=== PATIENT | female | born 1990 | race Caucasian/White ===

== ENCOUNTER → 2019-01-14 10:09 | Outpatient (CLI) | payer OTHER, SELFPAY ==
[2014-08-30 15:38] VITALS: BMI 30.2
[2019-01-14 12:45] LABS: Thyroid Stim Hormone (TSH) 1.24 uIU/mL (0.358-3.74)
== END ==
PROVIDERS: Family Provider Family Medicine; PCP Family Medicine; Visit Provider Family Medicine
DX: F41.0 Panic disorder [episodic paroxysmal anxiety] (principal)
CPT/HCPCS: 36415; 84443

== ENCOUNTER 2021-09-08 17:01 | Outpatient (CLI) | payer OTHER, SELFPAY ==
[2021-09-14 16:55] LABS: HPV APTIMA, High Risk Positive (Negative); HPV Reflexed? YES, CHARGE PATIENT
== END 2021-09-08 23:59 | disposition short-term general hospital (02) ==
LOC: LABSPEC 17:02
PROVIDERS: PCP Family Medicine; Visit Provider Obstetrics & Gynecology
DX: Z12.4 Encounter for screening for malignant neoplasm of cervix (principal)
CPT/HCPCS: 87624; 88175; G0145

== ENCOUNTER 2021-10-13 15:30 | Outpatient (CLI) | payer OTHER, SELFPAY ==
[2021-10-15 22:06] LABS: Chlamydia By Nucleic Acid AMP Negative (Negative)
[2021-10-15 22:43] LABS: Gonococcus By Nucleic Acid AMP Negative (Negative)
== END 2021-10-13 23:59 | disposition home or self-care (01) ==
LOC: LABSPEC 15:33
PROVIDERS: PCP Family Medicine; Visit Provider Obstetrics & Gynecology
DX: Z11.3 Encounter for screening for infections with a predominantly sexual mode of transmission (principal)
CPT/HCPCS: 87491; 87591

== ENCOUNTER 2021-10-27 11:28 | Outpatient (CLI) | payer OTHER, SELFPAY ==
--- NOTE | 2021-10-27 | IMM_PTH ---
PATIENT: LAKESHA HANNON LOC: [facility] U#:[id number] AGE/SX: 31/F ROOM: RE10/27/[address]: Dr. Bishop Mullins MD : 1990 BED: DIS: 10/27/2021 SPEC #: [id number] RECD: 10/28/21 13:29 STATUS: SCAR REAmos #: [id number] MADALYN: 10/27/21 00:[address]: Bishop Mullins DEPT: IMMUNOHISTOCHEMISTRY RECD BY: Celia Begum ENTERED: 10/28/21 13:29 SP TYPE: IMMUNO OTHR DR: Dr. Juan Ramos MD Tissues: A - Uterine cervix, NOS B - Endocervical Procedures: p16 (initial) KI-67 (add) PHYSICIAN & INSTITUTION [place] [id number] SPECIMEN INFORMATION: Tissue Source: A ? Cervical, four quadrant biopsy, B ? Endocervical curettage Clinical Info: HGSIL Specimen Number: [id number] A & B CPT code: 75498 x2, 79466 x2 METHODOLOGY: Deparaffinized sections of prefer/formalin-fixed tissue or PAP/DQ stained slides are incubated with monoclonal/polyclonal antibodies/oligonucleotide probes. Localization is made via biotin free immunoperoxidase method. Appropriate controls are performed and reacted as expected. Results on target cell population are indicated in the following table: RESULTS: ANTIBODY / CLONE RESULT Block A P16 (E6H4) positive, block-like Ki-67 (30-9) positive, moderate to high Block B P16 (E6H4) positive, block-like Ki-67 (30-9) positive, moderate These tests were developed and their performance characteristics determined by [facility]. They may not have been cleared or approved by the U.S. Food and Drug Administration. The FDA has determined that such clearance or approval is not necessary. The above immunohistochemical/dualISH markers are ordered and reviewed by the Pathologist. INTERPRETATION: A. Cervical, four quadrant biopsy: Moderate to severe squamous dysplasia, BERNIE II-III (HSIL). B. Endocervical curettage: Detached squamous epithelium with moderate to severe squamous dysplasia. AM:deni 10/29/2021
--- NOTE | 2021-10-27 10:45 | CER_PTH ---
PATIENT: LAKESHA HANNON [facility]: [facility] U#:[id number] AGE/SX: 31/F ROOM: RE10/27/[address]: Dr. Bishop Mullins MD : 1990 BED: DIS: 10/27/2021 SPEC #: [id number] RECD: 10/27/21 11:45 STATUS: SCAR REAmos #: [id number] MADALYN: 10/27/21 10:[address]: Bishop Mullins DEPT: SURGICAL PATHOLOGY RECD BY: Rema Herrera ENTERED: 10/27/21 12:30 SP TYPE: CERV OTHR DR: Dr. Juan Ramos MD Tissues: A - Uterine cervix, NOS B - Endocervical Procedures: Surgery Specimen Level IV HEADER OPERATION: Colposcopy PRE-OP DIAGNOSIS: HGSIL R87.613 TISSUE SUBMITTED: A ? Cervical biopsy (four-quadrant), B ? Endocervical curettage MICROSCOPIC DIAGNOSIS A. Cervix, biopsy: Mild, moderate and focal severe squamous dysplasia, BERNIE I-III (HSIL). Moderate dysplasia focally involves endocervical glands. See comment. B. Endocervix, curettings: Scant strips of benign superficial endocervix. Detached fragments of squamous mucosa with moderate/sever dysplasia and HPV change. See comment. AM:deni 10/28/2021 COMMENT A & B. Results from immunohistochemistry ([id number]) for surrogate HPV marker (p16) will be reported separately. MICROSCOPIC DESCRIPTION Slides are reviewed. GROSS DESCRIPTION A - Received in fixative is one container labeled with the patient's name and designated four quad cervical biopsy. The specimen consists of multiple irregular fragments of light bello soft tissue that in aggregate measure 1.2 x 0.5 x 0.1 cm. The specimen is totally submitted in one cassette. B - Received in fixative is one container labeled with the patient's name and designated endocervical curettage. The specimen consists of light bello mucoid material aggregating to 1.6 x 1 x 0.1 cm. The specimen is totally submitted in one cassette. / AM:deni 10/27/2021 TC:0 CPT: 19523 x2
== END 2021-10-27 23:59 | disposition home or self-care (01) ==
LOC: LABSPEC 11:30
PROVIDERS: PCP Family Medicine; Visit Provider Obstetrics & Gynecology
DX: R87.613 High grade squamous intraepithelial lesion on cytologic smear of cervix (HGSIL) (principal)
CPT/HCPCS: 88305; 88341; 88342

== ENCOUNTER 2021-12-20 05:54 | Day surgery (SDC) | payer OTHER, SELFPAY ==
[2021-12-08 12:47] LABS: Hematocrit 40.8 % (37-47); Hemoglobin 13.8 g/dL (12.0-15.0); Mean Corp Hgb Conc 33.8 g/dL (32-36); Mean Corpuscular Volume 91.7 fL (81-99); Mean Platelet Vol. 10.5 fl (6.2-12.0); Platelet Count 312 K/mm3 (150-450); RBC Distribution Width CV 11.9 % (11.6-14.6); RBC Distribution Width SD 39.6 fl (35.1-43.9); Red Blood Count 4.45 M/mm3 (4.2-5.4); White Blood Count 6.1 K/mm3 (4.4-11.0)
[2021-12-08 12:49] LABS: Internal QC Validated? YES +Cl - CLEAR BKGD; Pregnancy, Serum, hCG Quali. NEGATIVE Negative
[2021-12-08 12:56] LABS: International Normalized Ratio 0.9
[2021-12-08 12:57] LABS: Partial Thromboplast Time 25.9 Seconds (24.1-36.2)
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
--- NOTE | 2021-12-20 | IMM_PTH ---
PATIENT: LAKESHA HANNON LOC: [facility] U#:[id number] AGE/SX: 31/F ROOM: RE12/20/[address]: Dr. Bishop Mullins MD : 1990 BED: DIS: 12/20/2021 SPEC #: [id number] RECD: 12/21/21 12:27 STATUS: SCAR REAmos #: [id number] MADALYN: 12/20/21 00:[address]: Bishop Mullins DEPT: IMMUNOHISTOCHEMISTRY RECD BY: Celia Begum ENTERED: 12/21/21 12:30 SP TYPE: IMMUNO OTHR DR: Dr. Juan Ramos MD Tissues: A - UTERINE CERVIX LEEP B - UTERINE CERVIX LEEP C - Endocervical Procedures: p16 (initial) KI-67 (add) PHYSICIAN & INSTITUTION [place] [phone] SPECIMEN INFORMATION: Tissue Source: A ? Ectocervix, B ? Endocervix, C ? ECC after LEEP Clinical Info: HGSIL Specimen Number: [id number] A3, B & C CPT code: 66083 x3, 66943 x3 METHODOLOGY: Deparaffinized sections of prefer/formalin-fixed tissue or PAP/DQ stained slides are incubated with monoclonal/polyclonal antibodies/oligonucleotide probes. Localization is made via biotin free immunoperoxidase method. Appropriate controls are performed and reacted as expected. Results on target cell population are indicated in the following table: RESULTS: ANTIBODY / CLONE RESULT Block A3 P16 (E6H4) positive, block staining Ki-67 (30-9) positive, high Block B P16 (E6H4) positive, block staining Ki-67 (30-9) positive, high Block C P16 (E6H4) positive, block staining Ki-67 (30-9) positive, high These tests were developed and their performance characteristics determined by [facility]. They may not have been cleared or approved by the U.S. Food and Drug Administration. The FDA has determined that such clearance or approval is not necessary. The above immunohistochemical/dualISH markers are ordered and reviewed by the Pathologist. INTERPRETATION: A. Ectocervix, LEEP conization: Severe squamous dysplasia. B. Endocervix, LEEP conization: Severe squamous dysplasia. C. ECC after LEEP: Severe squamous dysplasia. SJ:deni 12/22/2021
[2021-12-20] MEDS: Lactated Ringers 1,000 ML 100 ML IV (06:15)
[2021-12-20 06:29] LABS: Internal QC Validated? YES +Cl - CLEAR BKGD; Pregnancy, Urine Negative Negative
[2021-12-20 06:30] VITALS: BP 131/79; PULSE 67; RESP 16; TEMP 36.6; O2SAT 100; BMI 36.2
--- NOTE | 2021-12-20 07:30 | CONE_PTH ---
PATIENT: LAKESHA HANNON [place] [facility] [place][id number] AGE/SX: 31/F ROOM: RE12/20/[address]: Dr. Bishop Mullins MD : 1990 BED: DIS: 12/20/2021 SPEC #: [id number] RECD: 12/20/21 10:47 STATUS: SCAR REAmos #: [id number] MADALYN: 12/20/21 07:[address]: Bishop Mullins DEPT: SURGICAL PATHOLOGY RECD BY: Rema Herrera ENTERED: 12/20/21 11:46 SP TYPE: Leep Cone ALEXA DR: Dr. Juan Ramos MD Tissues: A - UTERINE CERVIX LEEP B - UTERINE CERVIX LEEP C - Endocervical Procedures: Surgery Specimen Level IV Surgery Specimen Level V HEADER OPERATION: LEEP cone PRE-OP DIAGNOSIS: HGSIL TISSUE SUBMITTED: A ? Ectocervix, B ? Endocervix, C ? ECC after LEEP MICROSCOPIC DIAGNOSIS A. Ectocervix, LEEP conization: Extensive severe squamous dysplasia with HPV changes (HGSIL, BERNIE III). Dysplastic changes also involve endocervical glands. Chronic inflammation. See comment. B. Endocervix, LEEP conization: Moderate to severe squamous dysplasia. Dysplastic changes are very close to resection margin. See comment. C. ECC after LEEP: Detached fragments of squamous epithelium with severe squamous dysplasia. See comment. SJ:deni 12/21/2021 COMMENT A. Immunohistochemistry ([id number]) for surrogate HPV marker (p16) supports the above diagnosis. All three pieces show severe squamous dysplastic changes. Resection margin cannot be assessed as the specimen was received in multiple pieces. B. Immunohistochemistry ([id number]) for surrogate HPV marker (p16) supports the above diagnosis. C. Immunohistochemistry ([id number]) for surrogate HPV marker (p16) supports the above diagnosis. Please make reference to previous specimen ([id number]) cervix, biopsy with diagnosis of ?mild, moderate and focal severe squamous dysplasia? and endocervix, curettings with diagnosis of ?detached fragments of squamous mucosa with moderate/severe dysplasia and HPV changes.? MICROSCOPIC DESCRIPTION Slides are reviewed. GROSS DESCRIPTION A - Received in fixative is one container labeled with the patient's name and designated ectocervix. The specimen consists of three variable size pieces of bello, indurated tissue measuring 1.5 x 1 x 0.2 cm, 1.5 x 0.5 x 0.2 cm and 1 x 0.5 x 0.1 cm. No mucosal lesion is identified. Nonmucosal surface is inked black. The entire specimen is submitted in three cassettes. Each cassette contains one piece. B - Received in fixative is one container labeled with the patient's name and designated endocervix. The specimen consists of a bello, indurated piece of tissue measuring 1.5 x 0.6 x 0.3 cm. No mucosal lesion is identified. Nonmucosal surface is inked black. The specimen is serially sectioned and submitted entirely in one cassette. C - Received in fixative is one container labeled with the patient's name and designated ECC after LEEP. The specimen consists of multiple fragments of hemorrhagic mucoid tissue that in aggregate measure 0.5 x 0.2 x 0.1 cm. The specimen is totally submitted in one cassette. / CARRILLO:deni 12/20/2021 TC:5 CPT: 39724 x2, 81221
[2021-12-20] MEDS: Iodine/Potassium Iodide 14ML Bottle 1 DRP TOPICAL (07:50)
[2021-12-20] MEDS: FERRIC SUBSULFATE 8 GM SOLN (08:01)
--- NOTE | 2021-12-20 08:08 | PCM.OPRPT ---
Report of Operation Date of Procedure: 12/20/21 Pre-Operative Diagnosis: Severe Cervical Dysplasia Post-Operative Diagnosis: Severe Cervical Dysplasia Surgery/Procedure Performed:: LEEP of Cervix Description of Surgical Findings:: Normal-appearing cervix with IUD string present at cervical opening. Surgeon: Bishop Mullins Type of Anesthesia: General (LMA) Anesthesiologist: Nehemiah Ibrahim Specimen's removed: Endo cervix, ectocervix, ECC after LEEP Estimated Blood Loss (mL): Minimal Fluids Replaced: Crystalloid Description of Procedure: Surgeon: Bishop Mullins MD, FACOG Indication: 31 year patient who was recently noted to have severe cervical dysplasia at time of cervical biopsy. Given this, the patient desires that we proceed with the above surgery. She has been counseled regarding the risk, indications, and alternatives of this procedure and desire that we proceed. All questions answered. Procedure: Patient taken to the operating room where she was given IV sedation and placed in the dorsal lithotomy position and prepped and draped in the usual sterile fashion. Cervix was visualized and painted with Lugol's solution. The ectocervix was then removed to a depth of 5 mm on a setting of 50 W cutting and endocervix removed to a depth of 7 mm on a setting of 50 W cutting. Endocervical curettings were obtained. Base of the cone was then cauterized a setting of 50 W coagulation and Monsel's was painted across the LEEP base. Pt tolerated the procedure well and was taken to the recovery room in satisfactory condition. Sponge, instruments and needle counts were all correct. There were no apparent complications of the surgery. To Pathology: Ectocervix, endocervix, ECC after LEEP EBL Minimal. Grafts/Implants Used: None Complications None Admit VTE Documentation VTE Present on Admission: Yes VTE Mechan Device Prophylaxis: SCD's
--- NOTE | 2021-12-20 08:12 | PCM.DC ---
Discharge Instructions Diet Discharge Diet: No restrictions Activity Discharge Activity: Return to Normal Activity, May Shower and May Take a Tub Bath May resume sexual activity in: 4 weeks Additional Activity Instructions:: Nothing in vagina for 3 weeks. Okay the use ibuprofen or Tylenol per package directions for any cramping you may have over the next few days. Dressing / Incision Call your doctor if you observe: Fever of 101 or Higher, Inability to urinate and Inability to have a bowel movement Follow Up Care Please Follow Up With: Bishop Mullins MD When: 3-4 weeks Test Results: Test results from this visit will be discussed in further detail at your follow-up appointment, if applicable. Discharge Plan Admission Primary Reason for Your Visit: LEEP of Cervix Attending Provider: Bishop Mullins Primary Care Provider: Juan Ramos Discharge Orders/Prescriptions Prescriptions: No Action paroxetine HCl [Paxil] 20 mg Tablet 20 mg PO DAILY RF: 0 Referrals / Follow Up: Juan Ramos MD [Primary Care Provider] - Disposition Disposition (needs filled in before D/C Order can be placed): Home, Self Care
[2021-12-20 08:14] VITALS: BP 121/41; BP 131/79; PULSE 66; RESP 18; TEMP 37; O2SAT 99
[2021-12-20 08:15] VITALS: BP 121/41; BP 131/79; PULSE 56; RESP 16; O2SAT 99
[2021-12-20 08:30] VITALS: BP 121/76; BP 131/79; PULSE 60; RESP 16; O2SAT 98
[2021-12-20 08:34] VITALS: BP 118/69; BP 131/79; PULSE 59; RESP 16; TEMP 36.8; O2SAT 100
[2021-12-20 09:13] VITALS: BP 122/66; BP 131/79; PULSE 54; RESP 16; TEMP 36.4; O2SAT 100
== END 2021-12-20 23:59 | disposition home or self-care (01) ==
LOC: SDC 05:57 → AC 06:01
PROVIDERS: Anesthesiology; PCP Family Medicine; Referring Provider Obstetrics & Gynecology; Visit Provider Obstetrics & Gynecology
PROC: 0UBC7ZZ Excision of Cervix, Via Natural or Artificial Opening (ICD-10-PCS; CPT 57522; principal; 2021-12-20 07:15)
DX: D06.0 Carcinoma in situ of endocervix (principal); D06.7 Carcinoma in situ of other parts of cervix; N72 Inflammatory disease of cervix uteri; Z80.3 Family history of malignant neoplasm of breast; Z97.5 Presence of (intrauterine) contraceptive device; J45.909 Unspecified asthma, uncomplicated; F41.9 Anxiety disorder, unspecified; Z79.899 Other long term (current) drug therapy; Z86.16 Personal history of COVID-19
CPT/HCPCS: 57522; 00940; 36415; 81025; 84703; 85027; 85610; 85730; 86850; 86900; 86901; 87426; 88305; 88307; 88341; 88342; J7120; J2405

== ENCOUNTER → 2022-06-23 | Outpatient (CLI) | payer OTHER, SELFPAY ==
[2022-06-28 06:08] LABS: Chlamydia By Nucleic Acid AMP Negative (Negative)
[2022-06-28 17:44] LABS: Gonococcus By Nucleic Acid AMP Negative (Negative)
== END | disposition home or self-care (01) ==
LOC: LABSPEC 14:12
PROVIDERS: PCP Family Medicine; Visit Provider Student in an Organized Health Care Education/Training Program
DX: Z11.3 Encounter for screening for infections with a predominantly sexual mode of transmission (principal)
CPT/HCPCS: 87491; 87591

== ENCOUNTER → 2023-02-01 | Outpatient (CLI) | payer OTHER, SELFPAY ==
[2023-02-08 04:07] LABS: HPV APTIMA, High Risk Positive (Negative); HPV Genotype 16, Aptima Positive (Negative); HPV Genotype 18,45 Aptima Negative (Negative)
== END | disposition home or self-care (01) ==
LOC: LABSPEC 09:33
PROVIDERS: PCP Family Medicine; Visit Provider Obstetrics & Gynecology
DX: Z12.4 Encounter for screening for malignant neoplasm of cervix (principal)
CPT/HCPCS: 87624; 88175; G0145

== ENCOUNTER → 2023-02-17 | Outpatient (CLI) | payer OTHER, SELFPAY ==
--- NOTE | 2023-02-17 | IMM_PTH ---
PATIENT: LAKESHA HANNON LOC: [facility] U#:[id number] AGE/SX: 33/F ROOM: RE02/17/[address]: Dr. Narayan Zamora MD : 1990 BED: DIS: 02/17/2023 SPEC #: [id number] RECD: 02/20/23 13:28 STATUS: SCAR REQ #: [id number] MADALYN: 02/17/23 00:[address]: Narayan Zamora DEPT: IMMUNOHISTOCHEMISTRY RECD BY: Celia Begum ENTERED: 02/20/23 13:29 SP TYPE: IMMUNO OTHR DR: Dr. Juan Ramos MD Tissues: Uterine cervix, NOS Procedures: p16 (initial) KI-67 (add) PHYSICIAN & INSTITUTION [place] [id number] SPECIMEN INFORMATION: Tissue Source: B ? Cervix at 1, 5, 7 & 11 o?clock Clinical Info: R87.810 Specimen Number: [id number] CPT code: 07246, 54282 METHODOLOGY: Deparaffinized sections of prefer/formalin-fixed tissue or PAP/DQ stained slides are incubated with monoclonal/polyclonal antibodies/oligonucleotide probes. Localization is made via biotin free immunoperoxidase method. Appropriate controls are performed and reacted as expected. Results on target cell population are indicated in the following table: RESULTS: ANTIBODY / CLONE RESULT Block B P16 (E6H4) positive, focal, patchy Ki-67 (30-9) positive, low These tests were developed and their performance characteristics determined by [facility]. They may not have been cleared or approved by the U.S. Food and Drug Administration. The FDA has determined that such clearance or approval is not necessary. The above immunohistochemical/dualISH markers are ordered and reviewed by the Pathologist. INTERPRETATION: B. Cervix at 1, 5, 7 & 11 o?clock, biopsy: Consistent with focal HPV change. AM:deni 02/21/2023
--- NOTE | 2023-02-17 | EMB_PTH ---
PATIENT: LAKESHA HANNON [id number] AGE/SX: 33/F ROOM: RE02/17/[address]: Dr. Narayan Zamora MD : 1990 BED: DIS: 02/17/2023 SPEC #: [id number] RECD: 02/17/23 11:09 STATUS: SCAR REAmos #: [id number] MADALYN: 02/17/23 00:[address]: Narayan Zamora DEPT: SURGICAL PATHOLOGY RECD BY: Misa Ledezma ENTERED: 02/17/23 12:09 SP TYPE: ENDOM BX/C ALEXA DR: Dr. Juan Ramos MD Tissues: A - Endometrium, NOS B - Uterine cervix, NOS Procedures: Surgery Specimen Level IV HEADER OPERATION: Colposcopy PRE-OP DIAGNOSIS: R87.810 TISSUE SUBMITTED: A ? Endometrial biopsy, B ? Nelly 1, 5, 7 & 11 o?clock MICROSCOPIC DIAGNOSIS A. Endometrium, biopsy: Rare strips of benign glandular mucosa. B. Cervix at 1, 5, 7 & 11 o?clock, biopsy: Focal HPV change present. Squamous metaplasia with acute and chronic inflammation. See comment. AM:deni 02/20/2023 COMMENT B. Results from immunohistochemistry ([id number]) for surrogate HPV marker (p16) will be reported separately. MICROSCOPIC DESCRIPTION Slides are reviewed. GROSS DESCRIPTION A - Received in fixative is one container labeled with the patient's name and designated endometrial biopsy. The specimen consists of a scant amount of soft tissue. The specimen is totally submitted for cell block preparation. B - Received is one container labeled with the patient's name and not further designated. The specimen consists of multiple irregular fragments of light bello soft tissue that in aggregate measure 0.7 x 0.9 x 0.2 cm. The specimen is totally submitted in one cassette. / SJ:deni 02/17/2023 TC:3 CPT: 81839 x2
== END | disposition home or self-care (01) ==
LOC: LABSPEC 11:02
PROVIDERS: PCP Family Medicine; Visit Provider Obstetrics & Gynecology
DX: R87.810 Cervical high risk human papillomavirus (HPV) DNA test positive (principal)
CPT/HCPCS: 88305; 88341; 88342